=== PATIENT | female | born 1950 | race Caucasian/White ===

== ENCOUNTER 2016-07-05 17:11 | Emergency (ER) | payer BC | END 2016-07-05 18:01 | disposition left against medical advice (07) | LOC: ER 17:11 | DX: Z53.21 Procedure and treatment not carried out due to patient leaving prior to being seen by health care provider (principal) ==

== ENCOUNTER → 2016-07-05 | Outpatient (CLI) | payer BC | END | disposition home or self-care (01) | LOC: GMA 20:12 | PROVIDERS: ATTEND Nurse Practitioner Family | DX: R50.9 Fever, unspecified (principal) ==

== ENCOUNTER → 2016-08-21 | Outpatient (CLI) | payer BC ==
--- NOTE | 2016-08-21 17:16 | MAM ---
History: Well woman exam. Date of exam: 08/21/2016 Services provided: Bilateral full field digital screening mammography. CAD, the images were reviewed with R2 computer aided detection. FINDINGS: Glandular tissue is scattered glandular contour. Comparison with 2012 exam. No dominant mass, architectural distortion or clustered microcalcification. IMPRESSION: Benign exam Recommendation: Routine annual mammography BIRAD CATEGORY: 2 BENIGN Electronically signed by: Gayle Hummel MD 08/21/2016 5:15 PM CDT
== END | disposition home or self-care (01) ==
LOC: MAMMO 10:54
PROVIDERS: ATTEND Family Medicine
DX: Z12.31 Encounter for screening mammogram for malignant neoplasm of breast (principal)

== ENCOUNTER → 2016-09-26 | Outpatient (CLI) | payer BC | END | disposition home or self-care (01) | LOC: GMAL 10:25 | PROVIDERS: ATTEND Family Medicine | DX: N30.00 Acute cystitis without hematuria (principal) ==

== ENCOUNTER → 2016-12-12 | Outpatient (CLI) | payer BC | END | disposition home or self-care (01) | LOC: GMAL 10:56 | PROVIDERS: ATTEND Family Medicine | DX: E83.42 Hypomagnesemia (principal) ==

== ENCOUNTER → 2017-03-08 | Outpatient (CLI) | payer BC | END | disposition home or self-care (01) | LOC: GMAL 11:16 | PROVIDERS: ATTEND Family Medicine | DX: D51.3 Other dietary vitamin B12 deficiency anemia (principal); E03.9 Hypothyroidism, unspecified; E55.9 Vitamin D deficiency, unspecified ==

== ENCOUNTER → 2017-10-19 | Outpatient (CLI) | payer MEDICARE, OTHER | LOC: GMAL 11:23 | PROVIDERS: ATTEND Family Medicine | DX: N30.00 Acute cystitis without hematuria (principal) ==

== ENCOUNTER 2017-11-20 21:28 | Emergency (ER) | payer MEDICARE, OTHER ==
[2017-11-20] MEDS ORDERED: SODIUM CHLORIDE 0.9% 1000ML 1,000 ML IVS ONE (21:45)
[2017-11-20] MEDS ORDERED: ONDANSETRON ODT 8 MG TAB SL ONE (21:45)
[2017-11-20] MEDS ORDERED: ALUMINUM & MAGNESIUM HYDROXIDE 30 ML UD PO ONE (21:46)
[2017-11-20] MEDS ORDERED: PANTOPRAZOLE SODIUM IV 40 MG VIAL IV ONE (21:46)
--- NOTE | 2017-11-20 22:28 | RAD ---
EXAM: Abdomen Series CLINICAL INDICATION: Nausea, vomiting COMPARISON: 03/13/2010. FINDINGS: A single view of the chest reveals the heart size is normal. The pulmonary vessels are unremarkable. There is prominent soft tissue density in the right paratracheal region, underlying mass or lymphadenopathy cannot be excluded. This finding is not seen on previous chest x-ray from 03/13/2010. 2 views of the abdomen were obtained. Multiple surgical clips and casandra are seen in the upper abdomen. There is a nonspecific bowel gas pattern with no radiographic evidence of bowel obstruction. There are no dilated loops of small bowel. There is no evidence of pneumoperitoneum or pathologic calcifications. IMPRESSION: 1. No evidence of an acute intraabdominal process. 2. Incidentally noted prominent right paratracheal soft tissue density in the chest, raising concern for underlying mediastinal/hilar mass or lymphadenopathy. CT scan of the chest is recommended for further evaluation. Electronically signed by: Thom Springer MD 11/20/2017 10:26 PM CDT
--- NOTE | 2017-11-21 00:13 | CT ---
EXAMINATION: POSTCONTRAST ABDOMEN AND PELVIC CT EXAMINATION. REFERRAL DIAGNOSIS: Pain. COMPARISONS: None. PROCEDURE: Using low-dose helical technique, thin section axial images were performed through the abdomen and pelvis after the uncomplicated intravenous administration of nonionic iodinated contrast material. No oral contrast was administered. FINDINGS: Minimal vascular and organ enhancement suggests either intravenous contrast injection failure versus severely decreased cardiac output. Diffuse hepatic fatty infiltration. Hepatomegaly with the right hepatic lobe measuring 20 cm in greatest coronal dimension. Sequela of remote cholecystectomy. Fluid-filled distended urinary bladder. No convincing urinary system obstruction or pyelonephritis. The liver, spleen, pancreas, adrenal glands, kidneys, renal collecting systems, ureters and unenhanced urinary bladder are otherwise normal. The unenhanced nondistended stomach and duodenum cannot be evaluated. Numerous loops of unenhanced small bowel colon are grossly normal. No evidence of diverticulitis, appendicitis, chronic inflammatory bowel disease, mechanical small bowel obstruction or extraluminal bowel gas. No retroperitoneal hemorrhage or evidence of psoas muscle abscess. Severe atherosclerotic calcification in the abdominal aorta and iliac arteries without aneurysm. Greatest AP diameter of the infrarenal abdominal aorta measures 1.7 cm. No imaging follow-up recommended. 3.1 cystic structure in the left iliac crest possibly representing sequela of remote bone harvest site. Bones are normal for age. Lung bases are normal. IMPRESSION: 1. Diffuse hepatic fatty infiltration with hepatomegaly. 2. Fluid-filled distended urinary bladder. No urinary system obstruction or evidence of pyelonephritis. 3. No evidence of diverticulitis, appendicitis or inflammatory bowel disease. This exam was performed according to our departmental dose-optimization program, which includes automated exposure control, adjustment of the mA and/or kV according to patient size and/or use of iterative reconstruction technique. Electronically signed by: John Meneses MD 11/21/2017 12:12 AM CDT
--- NOTE | 2017-11-21 00:23 | CT ---
EXAMINATION: Postcontrast chest CT examination. REFERRAL DIAGNOSIS: Right paratracheal mass lesion. COMPARISONS: Today's abdomen and pelvic CT examination. PROCEDURE: Using low-dose helical technique, thin section axial images were performed through the chest after the uncomplicated intravenous administration of nonionic iodinated contrast material. No oral contrast was administered. Very poor arterial enhancement indicative of small injection contrast dose versus for delayed scan time after contrast injection versus poor cardiac output. This greatly degrades fine evaluation examination. CHEST CT FINDINGS: 3.1 cm right upper hilar mass lesion suspicious for malignancy. This lesion extends into the pretracheal mediastinum with mediastinal measurement equaling 3 cm x 3.4 cm. Suspect this represents small cell carcinoma. The lungs are otherwise clear given motion artifact. No pleural effusions. Cardiac size and contour appears normal. Partially visualized three-vessel coronary artery calcification. Fine detail obscured by cardiac motion artifact. No pericardial effusion. Atherosclerotic calcification of thoracic aorta without aneurysm. Greatest diameter of the ascending thoracic aorta measures approximately 2.6 cm. No evidence of metastatic disease to the bones. IMPRESSION: 1. Large right paratracheal mass extending into the right mediastinum as described above suspicious for small cell carcinoma. No evidence of metastatic disease to the left mediastinum or left lung. 2. No pleural effusions. 3. Partially visualized severe coronary artery calcification This exam was performed according to our departmental dose-optimization program, which includes automated exposure control, adjustment of the mA and/or kV according to patient size and/or use of iterative reconstruction technique. Electronically signed by: John Meneses MD 11/21/2017 12:21 AM CDT
--- NOTE | 2017-11-21 01:12 | ED.PDOC ---
History of Present Illness - General Chief Complaint: GI Problem Stated Complaint: vomiting x 3 days Time Seen by Provider: 11/20/17 21:35 Source: patient Exam Limitations: no limitations - History of Present Illness Initial Comments: the patient is a 67-year-old female presenting to the emergency room secondary to symptoms of nausea and vomiting for the last 3 days. She has been under a lot of stress recently with her having cancer. The nausea and vomiting have been progressive as far as rapidity of onset after taking any oral intake. Initially it started with vomiting only after food now she is having some vomiting with some liquids. No history of any cancer in this patient. She did have a distant gastric bypass. She does have some mild epigastric discomfort from the throwing up. No blood in the vomitus. She is still having bowel movements. No rebound or peritoneal signs. No shortness of breath. No chest pain. Severity: moderate Improving Factors: nothing Worsening Factors: nothing Associated Symptoms: malaise, nausea/vomiting, weakness Allergies/Adverse Reactions: Allergies NO KNOWN ALLERGY Allergy (Verified 05/29/12 15:29) Home Medications: Ambulatory Orders Desvenlafaxine Succinate [Pristiq] 50 mg PO DAILY 05/27/12 Esomeprazole [Nexium] 40 mg PO DAILY 05/27/12 Estradiol Patch 0.1MG [Climara] 0.1 mg TD DAILY 05/27/12 HYDROcodone 5MG/APAP 325MG [[place] 5/325] 0 ea PO .Q4H 05/27/12 Iron [Mykidz Iron 10] 15 mg PO DAILY 05/27/12 Levothyroxine Sodium [Synthroid] 0.075 mg PO DAILY 05/27/12 Simvastatin 20 mg PO DAILY 05/27/12 Ondansetron [Zofran Odt] 4 mg PO Q4H PRN #10 tab 11/21/17 Promethazine HCl 25 mg PO Q6H PRN #10 tab 11/21/17 Review of Systems - Review of Systems Constitutional: States: malaise EENTM: States: no symptoms reported Respiratory: States: no symptoms reported Cardiology: States: no symptoms reported Gastrointestinal/Abdominal: States: see HPI Genitourinary: States: no symptoms reported Musculoskeletal: States: no symptoms reported Skin: States: no symptoms reported Neurological: States: no symptoms reported Endocrine: States: no symptoms reported All other Systems: No Change from Baseline Past Medical History (General) - Patient Medical History Hx Stroke: Yes Hx Congestive Heart Failure: No Hx Thyroid Disease: Yes Hx Diabetes: No Hx Gastroesophageal Reflux: Yes Hx MRSA: No Surgical History: appendectomy, cholecystectomy, gastric bypass - Vaccination History Hx Tetanus, Diphtheria Vaccination: No Hx Influenza Vaccination: Yes Hx Pneumococcal Vaccination: No - Social History Hx Tobacco Use: Yes Hx Chewing Tobacco Use: No Hx Alcohol Use: No Hx Depression: Yes Feels Threatened In Home Enviroment: No Feels Threatened In a Relationship: No Hx Physical Abuse: No Hx Emotional Abuse: No Hx Suspected Abuse: No Family Medical History - Family History Father Family History: Unknown Physical Exam - Physical Exam General Appearance: Alert, Anxious Eye Exam: bilateral normal Ears, Nose, Throat: hearing grossly normal, normal ENT inspection, normal pharynx Neck: full range of motion, supple Respiratory: lungs clear, normal breath sounds, no respiratory distress, no accessory muscle use Cardiovascular/Chest: normal peripheral pulses, regular rate, rhythm, no edema Peripheral Pulses: radial,right: 2+, radial,left: 2+, dorsalis pedis,right: 2+, dorsalis pedis,left: 2+ Gastrointestinal/Abdominal: soft, other - mild epigastric discomfort palpation. No rebound or peritoneal signs. No palpable mass. 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, alert, oriented x 3, other - the patient is obviously depressed Skin Exam: normal color Comments: Vital Signs 11/20/17 11/20/17 11/20/17 21:35 22:40 23:40 Temperature 98.2 F 97.6 F 98.1 F Pulse Rate [ 89 84 91 H Right Arm] Respiratory 18 18 18 Rate Blood Pressure 162/76 149/76 163/97 [Right Arm] O2 Sat by Pulse 100 100 99 Oximetry 11/21/17 00:33 Temperature Pulse Rate [ 78 Right Arm] Respiratory 20 Rate Blood Pressure 154/70 [Right Arm] O2 Sat by Pulse 98 Oximetry Progress - Progress Progress: 11/21/17 01:14 the patient is a 67-year-old female presenting originally with nausea and vomiting for the last [address] scan of abdomen and pelvis failed to show any source for this though she does have a history of a gastric bypass. She does need to remain on her stomach medications. A likely source is the mediastinal mass noted on the CT scan. According to radiology it is suspicious for small cell carcinoma. this is not a definitive diagnosis. The patient is unwilling to stay for further care or be transferred for higher level of care tonight. Due to her recent ordeal with her and his cancer she is well acquainted with the oncologist in [place] and has agreed to get set up with them in the very near future for more definitive evaluation and treatment. given her current condition this is not unreasonable. She will be written for Zofran and Phenergan for as needed use. She needs to try and keep herself well hydrated. ER warnings were given. - Results/Orders Results/Orders: chest x-ray shows right perihilar abnormality. Abdominal x-ray shows no evidence of any perforation or obstruction. CT scan of abdomen and pelvis shows mild hepatomegaly and an old cystic structure at the left iliac crest likely due to bone marrow biopsy. CT scan of the chest shows a 3 cm right upper hilar lesion suspicious for small cell carcinoma extending into the pretracheal mediastinum at about the level of the bifurcation of the trachea at 3 cm x 3.5 cm. Laboratory Tests 11/20/17 11/20/17 11/20/17 22:12 22:12 22:12 WBC 5.6 RBC 3.91 L Hgb 13.3 Hct 38.9 MCV 99.5 H MCH 34.0 H MCHC 34.1 RDW 13.3 Plt Count 209 MPV 7.6 Absolute Neuts (auto) 3.90 Absolute Lymphs (auto) 1.20 Absolute Monos (auto) 0.40 Absolute Eos (auto) 0.10 Absolute Basos (auto) 0.00 Neutrophils % 69.0 Lymphocytes % 22.1 Monocytes % 6.8 Eosinophils % 1.4 Basophils % 0.7 PT 9.9 INR 0.99 PTT (SP) 25.2 Sodium 138 Potassium 3.9 Chloride 101 Carbon Dioxide 31 Anion Gap 9.9 L BUN < 5 L Creatinine 0.48 L BUN/Creatinine Ratio 10.4 Random Glucose 101 Serum Osmolality 273.1 L Lactic Acid Calcium 8.3 L Magnesium 1.7 L Total Bilirubin 0.5 AST 52 H ALT 26 Alkaline Phosphatase 150 H Creatine Kinase 68 CK-MB (CK-2) 3.2 CK-MB (CK-2) % Not Reportable Troponin I < 0.02 B-Natriuretic Peptide 40.8 Serum Total Protein 6.3 L Albumin 2.8 L Globulin 3.5 Albumin/Globulin Ratio 0.8 L Amylase 49 Lipase < 14 L TSH 4.71 Urine Color Urine Appearance Urine pH Ur Specific [place] Urine Protein Urine Glucose (UA) Urine Ketones Urine Blood Urine Nitrite Urine Bilirubin Urine Urobilinogen Ur Leukocyte Esterase Urine RBC Urine WBC Ur Epithelial Cells Urine Bacteria 11/20/17 11/20/17 22:12 22:12 WBC RBC Hgb Hct MCV MCH MCHC RDW Plt Count MPV Absolute Neuts (auto) Absolute Lymphs (auto) Absolute Monos (auto) Absolute Eos (auto) Absolute Basos (auto) Neutrophils % Lymphocytes % Monocytes % Eosinophils % Basophils % PT INR PTT (SP) Sodium Potassium Chloride Carbon Dioxide Anion Gap BUN Creatinine BUN/Creatinine Ratio Random Glucose Serum Osmolality Lactic Acid 1.0 Calcium Magnesium Total Bilirubin AST ALT Alkaline Phosphatase Creatine Kinase CK-MB (CK-2) CK-MB (CK-2) % Troponin I B-Natriuretic Peptide Serum Total Protein Albumin Globulin Albumin/Globulin Ratio Amylase Lipase TSH Urine Color Yellow Urine Appearance Clear Urine pH 7.0 Ur Specific [place] 1.015 Urine Protein Negative Urine Glucose (UA) Negative Urine Ketones Negative Urine Blood Negative Urine Nitrite Negative Urine Bilirubin Negative Urine Urobilinogen 0.2 Ur Leukocyte Esterase Negative Urine RBC 0-1 Urine WBC 0 Ur Epithelial Cells 3-5 Urine Bacteria 1+ Departure - Departure Clinical Impression: Mass of mediastinum Vomiting Qualifiers: Vomiting type: unspecified Vomiting Intractability: non-intractable Nausea presence: with nausea Qualified Code(s): R11.2 - Nausea with vomiting, unspecified Disposition: Discharge to Home or Self Care Condition: Serious Departure Forms: ED Discharge - Pt. Copy, Patient Portal Self Enrollment Instructions: Nausea and Vomiting, Adult Diet: full liquid diet Activity: increase activity as tolerated Referrals: Abraham Ortiz III, MD [Primary Care Provider] - 1-2 Weeks Prescriptions: Ondansetron [Zofran Odt] 4 mg PO Q4H PRN #10 tab PRN Reason: Vomiting Promethazine HCl 25 mg PO Q6H PRN #10 tab PRN Reason: Vomiting Home Medications: Ambulatory Orders Desvenlafaxine Succinate [Pristiq] 50 mg PO DAILY 05/27/12 Esomeprazole [Nexium] 40 mg PO DAILY 05/27/12 Estradiol Patch 0.1MG [Climara] 0.1 mg TD DAILY 05/27/12 HYDROcodone 5MG/APAP 325MG [[place] 5/325] 0 ea PO .Q4H 05/27/12 Iron [Mykidz Iron 10] 15 mg PO DAILY 05/27/12 Levothyroxine Sodium [Synthroid] 0.075 mg PO DAILY 05/27/12 Simvastatin 20 mg PO DAILY 05/27/12 Ondansetron [Zofran Odt] 4 mg PO Q4H PRN #10 tab 11/21/17 Promethazine HCl 25 mg PO Q6H PRN #10 tab 11/21/17 Additional Instructions: the patient is a 67-year-old female presenting originally with nausea and vomiting for the last [address] scan of abdomen and pelvis failed to show any source for this though she does have a history of a gastric bypass. She does need to remain on her stomach medications. A likely source is the mediastinal mass noted on the CT scan. According to radiology it is suspicious for small cell carcinoma. this is not a definitive diagnosis. The patient is unwilling to stay for further care or be transferred for higher level of care tonight. Due to her recent ordeal with her and his cancer she is well acquainted with the oncologist in [place] and has agreed to get set up with them in the very near future for more definitive evaluation and treatment. given her current condition this is not unreasonable. She will be written for Zofran and Phenergan for as needed use. She needs to try and keep herself well hydrated. ER warnings were given.
[2017-11-21 01:52] VITALS: BP 142/76; TEMP 97.4; O2SAT 97
== END 2017-11-21 00:50 | disposition home or self-care (01) ==
LOC: ER 21:28
DX: R11.2 Nausea with vomiting, unspecified (principal); R22.2 Localized swelling, mass and lump, trunk; E07.9 Disorder of thyroid, unspecified; K21.9 Gastro-esophageal reflux disease without esophagitis; R16.0 Hepatomegaly, not elsewhere classified; Z86.73 Personal history of transient ischemic attack (TIA), and cerebral infarction without residual deficits; Z98.84 Bariatric surgery status; Z87.891 Personal history of nicotine dependence; Z79.899 Other long term (current) drug therapy
CPT/HCPCS: 71260; 74019; 74177; 80053; 81001; 82150; 82550; 82553; 83605; 83690; 83735; 83880; 84443; 84484; 85025; 85610; 85730; J7030

== ENCOUNTER → 2017-12-28 | Outpatient (CLI) | payer MEDICARE, OTHER | LOC: GMAL 10:59 | PROVIDERS: ATTEND Family Medicine | DX: N30.00 Acute cystitis without hematuria (principal) ==

== ENCOUNTER 2018-03-04 16:27 | Emergency (ER) | payer MEDICARE, OTHER ==
[2018-03-04] MEDS ORDERED: SODIUM CHLORIDE 0.9% 1000ML 1,000 ML IVS ONE (16:49)
[2018-03-04] MEDS ORDERED: ALUM & MAG HYDROX-SIMETHICONE 30 ML, LIDOCAINE VISCOUS 2% 15 ML PO ONE ×2 (16:49)
[2018-03-04] MEDS ORDERED: PROCHLORPERAZINE INJ 10 MG/2 ML VIAL IV ONE (16:49)
[2018-03-04] MEDS ORDERED: LIDOCAINE HCL 2% (MOUTH-THROAT) 15 ML UD ONE (17:10)
[2018-03-04] MEDS ORDERED: ALUM & MAG HYDROX-SIMETHICONE 30 ML UD ONE (17:11)
--- NOTE | 2018-03-04 17:43 | RAD ---
EXAM DESCRIPTION: Abdomen Series CLINICAL HISTORY: lung cancer, vomiting COMPARISON: None Available. TECHNIQUE: PA chest with supine and upright views of the abdomen] FINDINGS: A PICC line is seen in place on the patient's right with the distal tip in the superior vena cava. An anterior cervical fusion plate is observed in the cervical spine. Previously observed right paratracheal adenopathy is less pronounced. The heart is within range of normal. Surgical clips are seen in the right upper quadrant. Chain sutures seen in the left upper quadrant. The bowel gas pattern is unremarkable. No worrisome calcifications are seen. IMPRESSION: The abdomen is unremarkable. The chest portion demonstrates a reduction the size of the right paratracheal mass. Electronically signed by: Abraham Sanches MD 03/04/2018 5:42 PM CDT
[2018-03-04] MEDS ORDERED: FLUCONAZOLE 100 MG TAB PO ONE (18:25)
[2018-03-04] MEDS ORDERED: SUCRALFATE 1 GM/10 ML 1 GM UD PO ONE (18:48)
[2018-03-04] MEDS ORDERED: AMOXICILLIN & POT CLAVULANATE 875 MG TAB PO ONE (18:48)
[2018-03-04] MEDS ORDERED: valACYclovir 500 MG TAB PO ONE (18:50)
--- NOTE | 2018-03-04 19:27 | ED.PDOC ---
History of Present Illness - General Chief Complaint: General Time Seen by Provider: 03/04/18 16:35 Source: patient Exam Limitations: no limitations - History of Present Illness Initial Comments: the patient is a 67-year-old female presenting to the emergency room secondary to 5 days of some mild nausea and vomiting. No real diarrhea. The patient has had blisters in her mouth that are now healing. She is undergoing chemotherapy and her last chemotherapy round was 2 weeks ago. She is uncertain what medications are being used for chemotherapy. She has small cell lung cancer. She is not undergoing radiation. She actually looks fairly well hydrated. No blood in the vomitus. No real abdominal pain. Evidence supports that her chemotherapy is actually working. No fevers. No shortness of breath. No urinary symptoms. She did have similar symptoms 3 or 4 months ago. the patient had not been taking her Phenergan because it made her too drowsy. Timing/Duration: unsure Severity: moderate Improving Factors: nothing Worsening Factors: nothing Associated Symptoms: malaise, nausea/vomiting Allergies/Adverse Reactions: Allergies NO KNOWN ALLERGY Allergy (Verified 05/29/12 15:29) Home Medications: Ambulatory Orders Desvenlafaxine Succinate [Pristiq] 50 mg PO DAILY 05/27/12 Esomeprazole [Nexium] 40 mg PO DAILY 05/27/12 Estradiol Patch 0.1MG [Climara] 0.1 mg TD DAILY 05/27/12 HYDROcodone 5MG/APAP 325MG [Orange 5/325] 0 ea PO .Q4H 05/27/12 Iron [Mykidz Iron 10] 15 mg PO DAILY 05/27/12 Levothyroxine Sodium [Synthroid] 0.075 mg PO DAILY 05/27/12 Simvastatin 20 mg PO DAILY 05/27/12 Ondansetron [Zofran Odt] 4 mg PO Q4H PRN #10 tab 11/21/17 Promethazine HCl 25 mg PO Q6H PRN #10 tab 11/21/17 Amoxicillin & Pot Clavulanate [Augmentin Tab] 875 mg PO BID #14 tab 03/04/18 Prochlorperazine Tab [Compazine Tab] 10 mg PO Q8HR PRN #20 tab 03/04/18 Valacyclovir HCl [Valtrex] 500 mg PO BID #10 tab 03/04/18 Review of Systems - Review of Systems Constitutional: States: malaise EENTM: States: no symptoms reported Respiratory: States: no symptoms reported Cardiology: States: no symptoms reported Gastrointestinal/Abdominal: States: nausea, vomiting Genitourinary: States: no symptoms reported Musculoskeletal: States: no symptoms reported Skin: States: no symptoms reported Neurological: States: no symptoms reported Endocrine: States: no symptoms reported All other Systems: No Change from Baseline Past Medical History (General) - Patient Medical History Hx Stroke: Yes Hx Congestive Heart Failure: No Hx Thyroid Disease: Yes Hx Diabetes: No Hx Gastroesophageal Reflux: Yes Hx Cancer: Yes Hx MRSA: No Surgical History: appendectomy, cholecystectomy - Vaccination History Hx Tetanus, Diphtheria Vaccination: Yes Hx Influenza Vaccination: Yes Hx Pneumococcal Vaccination: Yes Immunizations Up to Date: No - Social History Hx Tobacco Use: Yes Hx Chewing Tobacco Use: No Hx Alcohol Use: No Hx Substance Use: No Hx Substance Use Treatment: No Hx Depression: No Feels Threatened In Home Enviroment: No Feels Threatened In a Relationship: No Hx Physical Abuse: No Hx Emotional Abuse: No Hx Suspected Abuse: No - Female History Patient is a Female of Child Bearing Age (10 -59 yrs old): No Patient : No Family Medical History - Family History Father Family History: Unknown Physical Exam - Physical Exam General Appearance: Alert, No apparent distress Eye Exam: bilateral normal Ears, Nose, Throat: hearing grossly normal, other - healing blisters on the roof of her mouth. No lesions in her nares. Neck: full range of motion, supple Respiratory: lungs clear, normal breath sounds, no respiratory distress, no accessory muscle use Cardiovascular/Chest: normal peripheral pulses, regular rate, rhythm, no edema Peripheral Pulses: radial,right: 2+, radial,left: 2+, dorsalis pedis,right: 2+, dorsalis pedis,left: 2+ Gastrointestinal/Abdominal: non tender, soft Rectal Exam: deferred Back Exam: normal inspection, no CVA tenderness, no vertebral tenderness Extremity: non-tender, normal inspection, no pedal edema, normal capillary refill, other - PICC line is in the right upper extremity Neurologic: alert, normal mood/affect, oriented x 3 Skin Exam: normal color Comments: Vital Signs - 24 hr 03/04/18 16:28 Temperature 98.2 F Pulse Rate [ 100 H Apical] Respiratory 18 Rate Blood Pressure 145/112 [Left Arm] O2 Sat by Pulse 99 Oximetry Progress - Progress Progress: 03/04/18 19:28 the patient's a 67-year-old female presenting to the emergency room after 5 days of intermittent nausea and vomiting. The patient does have some healing blisters to the roof of her mouth. A HSV culture is being performed. She is going to be empirically placed on Valtrex for the next 5 days in case this turns up positive. She was given 1 dose of oral Diflucan as well. It is possible she may have these lesions extending down her esophagus. I'm uncertain if these can be a side effect of her chemotherapy. No source of other infection was found on this patient. Blood cultures have been performed. The patient is going to be placed on broad-spectrum antibiotic Augmentin twice a day for the next 7 days. Obviously if the patient becomes symptomatic otherwise, additional workup may be warranted. X-ray of the chest does show improvement of the hilar mass. The patient is doing quite well after a dose of Compazine and a liter of IV fluids and is desirous of going home. At this point , I do not see much that A inpatient hospital stay could provide her otherwise. She'll be sent home with Augmentin, Valtrex, and Compazine. ER warnings were given. She does need to contact her oncology group tomorrow to let them know what is happening. White blood cell count today was 11,900 with 7% bands. Platelets are low at 80. I do not have recent blood work for comparison. - Results/Orders Results/Orders: 03/04/18 18:25 HERPES CULTURE RAPID Stat 03/04/18 18:37 BLOOD CULTURE Stat 03/04/18 18:56 HERPES CULTURE RAPID Routine Laboratory Results - last 24 hr 03/04/18 03/04/18 03/04/18 16:56 16:56 16:56 WBC 11.0 H RBC 2.69 L Hgb 9.1 L Hct 27.6 L MCV 102.8 H MCH 33.8 H MCHC 33.1 RDW 15.2 H Plt Count 80 L MPV 8.4 Absolute Neuts (auto) Not Reportable Absolute Lymphs (auto) Not Reportable Absolute Monos (auto) Not Reportable Absolute Eos (auto) Not Reportable Neutrophils % Not Reportable Neutrophils % (Manual) 71.0 Lymphocytes % Not Reportable Lymphocytes % (Manual) 18.0 Monocytes % Not Reportable Monocytes % (Manual) 4.0 Eosinophils % Not Reportable Basophils % Not Reportable Band Neutrophils 7.0 H Hypochromia 2+ Platelet Estimate Decreased Anisocytosis 1+ PT INR Sodium 137 Potassium 3.9 Chloride 101 Carbon Dioxide 28 Anion Gap 11.9 L BUN 7 Creatinine 0.48 L BUN/Creatinine Ratio 14.6 Random Glucose 91 Serum Osmolality 271.4 L Lactic Acid 1.9 Calcium 8.3 L Magnesium 1.7 L Total Bilirubin 0.3 AST 20 ALT 15 Alkaline Phosphatase 136 H Creatine Kinase 18 L CK-MB (CK-2) 10.6 H* CK-MB (CK-2) % Not Reportable Troponin I 0.03 Serum Total Protein 5.5 L Albumin 2.7 L Globulin 2.8 Albumin/Globulin Ratio 1.0 L Amylase 33 Lipase 19 L Urine Color Urine Appearance Urine pH Ur Specific [place] Urine Protein Urine Glucose (UA) Urine Ketones Urine Blood Urine Nitrite Urine Bilirubin Urine Urobilinogen Ur Leukocyte Esterase Urine RBC Urine WBC Ur Epithelial Cells Amorphous Sediment Urine Bacteria 03/04/18 03/04/18 17:13 18:02 WBC RBC Hgb Hct MCV MCH MCHC RDW Plt Count MPV Absolute Neuts (auto) Absolute Lymphs (auto) Absolute Monos (auto) Absolute Eos (auto) Neutrophils % Neutrophils % (Manual) Lymphocytes % Lymphocytes % (Manual) Monocytes % Monocytes % (Manual) Eosinophils % Basophils % Band Neutrophils Hypochromia Platelet Estimate Anisocytosis PT 11.9 H INR 1.19 H Sodium Potassium Chloride Carbon Dioxide Anion Gap BUN Creatinine BUN/Creatinine Ratio Random Glucose Serum Osmolality Lactic Acid Calcium Magnesium Total Bilirubin AST ALT Alkaline Phosphatase Creatine Kinase CK-MB (CK-2) CK-MB (CK-2) % Troponin I Serum Total Protein Albumin Globulin Albumin/Globulin Ratio Amylase Lipase Urine Color Yellow Urine Appearance Sl cloudy Urine pH 7.0 Ur Specific [place] 1.020 Urine Protein Negative Urine Glucose (UA) Negative Urine Ketones Negative Urine Blood Negative Urine Nitrite Negative Urine Bilirubin Negative Urine Urobilinogen 1.0 Ur Leukocyte Esterase Negative Urine RBC 0-1 Urine WBC Not Reportable Ur Epithelial Cells 3-5 Amorphous Sediment 2+ Urine Bacteria 0 acute abdominal series shows no acute pathology. PICC line is present. No evidence of pneumonia. No obstruction. No free air. - EKG/XRAY/CT CT Ordered: No CT Interpretation Call Back: No Departure - Departure Clinical Impression: Mild dehydration, Pharyngeal lesion Nausea and vomiting Qualifiers: Vomiting type: unspecified Vomiting Intractability: non-intractable Qualified Code(s): R11.2 - Nausea with vomiting, unspecified Disposition: Discharge to Home or Self Care Condition: Fair Departure Forms: ED Discharge - Pt. Copy, Patient Portal Self Enrollment Diet: bland diet Activity: increase activity as tolerated Referrals: Abraham Ortiz III, MD [Primary Care Provider] - 1-5 Days Prescriptions: Prochlorperazine Tab [Compazine Tab] 10 mg PO Q8HR PRN #20 tab PRN Reason: Nausea/Vomiting Amoxicillin & Pot Clavulanate [Augmentin Tab] 875 mg PO BID #14 tab Valacyclovir HCl [Valtrex] 500 mg PO BID #10 tab Home Medications: Ambulatory Orders Desvenlafaxine Succinate [Pristiq] 50 mg PO DAILY 05/27/12 Esomeprazole [Nexium] 40 mg PO DAILY 05/27/12 Estradiol Patch 0.1MG [Climara] 0.1 mg TD DAILY 05/27/12 HYDROcodone 5MG/APAP 325MG [Orange 5/325] 0 ea PO .Q4H 05/27/12 Iron [Mykidz Iron 10] 15 mg PO DAILY 05/27/12 Levothyroxine Sodium [Synthroid] 0.075 mg PO DAILY 05/27/12 Simvastatin 20 mg PO DAILY 05/27/12 Ondansetron [Zofran Odt] 4 mg PO Q4H PRN #10 tab 11/21/17 Promethazine HCl 25 mg PO Q6H PRN #10 tab 11/21/17 Amoxicillin & Pot Clavulanate [Augmentin Tab] 875 mg PO BID #14 tab 03/04/18 Prochlorperazine Tab [Compazine Tab] 10 mg PO Q8HR PRN #20 tab 03/04/18 Valacyclovir HCl [Valtrex] 500 mg PO BID #10 tab 03/04/18 Additional Instructions: the patient's a 67-year-old female presenting to the emergency room after 5 days of intermittent nausea and vomiting. The patient does have some healing blisters to the roof of her mouth. A HSV culture is being performed. She is going to be empirically placed on Valtrex for the next 5 days in case this turns up positive. She was given 1 dose of oral Diflucan as well. It is possible she may have these lesions extending down her esophagus. I'm uncertain if these can be a side effect of her chemotherapy. No source of other infection was found on this patient. Blood cultures have been performed. The patient is going to be placed on broad-spectrum antibiotic Augmentin twice a day for the next 7 days. Obviously if the patient becomes symptomatic otherwise, additional workup may be warranted. X-ray of the chest does show improvement of the hilar mass. The patient is doing quite well after a dose of Compazine and a liter of IV fluids and is desirous of going home. At this point , I do not see much that A inpatient hospital stay could provide her otherwise. She'll be sent home with Augmentin, Valtrex, and Compazine. ER warnings were given. She does need to contact her oncology group tomorrow to let them know what is happening. White blood cell count today was 11,900 with 7% bands. Platelets are low at 80. I do not have recent blood work for comparison.
[2018-03-04 19:55] VITALS: BP 114/52; TEMP 98.3; O2SAT 100
== END 2018-03-04 19:56 | disposition home or self-care (01) ==
LOC: ER 16:27
DX: R11.2 Nausea with vomiting, unspecified (principal); E86.0 Dehydration; J39.2 Other diseases of pharynx; C34.90 Malignant neoplasm of unspecified part of unspecified bronchus or lung; K21.9 Gastro-esophageal reflux disease without esophagitis; E07.9 Disorder of thyroid, unspecified; Z86.73 Personal history of transient ischemic attack (TIA), and cerebral infarction without residual deficits; Z79.899 Other long term (current) drug therapy; Z87.891 Personal history of nicotine dependence; Z92.21 Personal history of antineoplastic chemotherapy
CPT/HCPCS: 36415; 74019; 80053; 81001; 82150; 82550; 82553; 83605; 83690; 83735; 84484; 85025; 85610; 87040; 87254; J0780; J7030

== ENCOUNTER → 2018-03-27 | Outpatient (CLI) | payer MEDICARE, OTHER ==
[2018-03-27] MEDS: SODIUM CHLORIDE 0.9% (FLUSH) 10 ML SYG IV PRN ×2 (08:36→09:06)
[2018-03-27 10:26] VITALS: BP 133/78; TEMP 97.6; O2SAT 99
== END | disposition home or self-care (01) ==
LOC: TXRM 03-26 17:02
PROVIDERS: ATTEND Internal Medicine Hematology & Oncology
DX: C34.11 Malignant neoplasm of upper lobe, right bronchus or lung (principal); D69.6 Thrombocytopenia, unspecified
CPT/HCPCS: 36415; 86900; 86901; G0463; P9035

== ENCOUNTER 2018-08-02 05:38 | Day surgery (SDC) | payer MEDICARE, OTHER ==
[2018-08-02] MEDS ORDERED: LACTATED RINGERS 1,000 ML ONE (05:54)
[2018-08-02] MEDS ORDERED: PROPOFOL 200 MG/20 ML VIAL IV ONE (07:00)
[2018-08-02] MEDS: LACTATED RINGERS 1,000 ML BAG IV ONE (09:25)
--- NOTE | 2018-08-02 11:22 | OP ---
DATE OF PROCEDURE: 08/02/18 PREPROCEDURE DIAGNOSIS: 1. Nausea/vomiting/abdominal pain. POSTPROCEDURE DIAGNOSIS: 1. Status post Valery-en-Y gastric bypass. PROCEDURE: 1. Esophagogastroduodenoscopy. SURGEON: Elvin Perez MD COMPLICATIONS: No immediate complications. SEDATION: The patient was sedated via IV propofol by the Anesthesia Department. CONSENT: Prior to the procedure, risks, benefits and alternatives to the therapy were discussed with the patient. The risks included bleeding, infection, perforation and . The patient agreed to the procedure and signed a consent. PREPROCEDURE ANESTHESIA ASSESSMENT: An examination revealed no contraindication to sedation. Airway examination demonstrated a Mallampati class type 2, ASA grade assessment type 2. Throughout the procedure, the patient's blood pressure and additional vitals were closely monitored. PROCEDURE: The patient was placed in the left lateral decubitus position. Bite block was placed in the mouth between the teeth. The Olympus endoscope was introduced through the oropharynx, esophagus, stomach and the proximal aspect of the jejunum. The scope was retracted and the mucosa visualized. The entirety of the exam was performed under direct visualization. Retroflexion was performed in the stomach pouch. The patient tolerated the procedure well. FINDINGS: 1. The esophagus appeared entirely normal. 2. An intact gastric pouch was visualized and anatomy compatible with Valery-en-Y gastric bypass was seen. The gastrojejunal anastomosis appeared intact. No evident ulcers at the level of the anastomosis were seen. The afferent limb was explored and examined under direct vision. The proximal jejunum was entirely normal. No evident strictures or ulcerations were seen throughout. IMPRESSION: 1. Status post Valery-en-Y gastric bypass with healthy appearing gastrojejunal anastomosis. No evidence of endoscopic abnormalities. RECOMMENDATION: 1. Return the patient home. 2. Resume previous diet favoring small portions meals and frequent eating. 3. Additional testing may be required and clinical correlation. This may include cross-sectional imaging of the abdomen. We will discuss during her next followup visit. 4. Return to my office in the next 1 to 2 weeks. 5. The findings were discussed with the patient and family members. #[id number] [facility]
[2018-08-02 11:42] VITALS: BP 118/60; TEMP 97.4; O2SAT 97
== END 2018-08-02 11:30 ==
LOC: AMB 05:38
PROVIDERS: ATTEND Internal Medicine Gastroenterology
DX: R11.2 Nausea with vomiting, unspecified (principal); R10.9 Unspecified abdominal pain; F17.210 Nicotine dependence, cigarettes, uncomplicated; Z98.84 Bariatric surgery status; Z86.010 Personal history of colon polyps; Z87.19 Personal history of other diseases of the digestive system; Z79.899 Other long term (current) drug therapy
CPT/HCPCS: 00731; 43235; J3490; J7120

== ENCOUNTER 2018-10-05 18:14 | Emergency (ER) | payer MEDICARE, OTHER ==
--- NOTE | 2018-10-05 18:33 | ED.PDOC ---
History of Present Illness - General Chief Complaint: General Stated Complaint: generalized intractable pain, cancer Time Seen by Provider: 10/05/18 18:18 Source: patient Exam Limitations: no limitations - History of Present Illness Initial Comments: THIS PATIENT COMES BY AMBULANCE. 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 SHE IS STILL RECEIVING BRAIN RADIOTHERAPY AND UNDER THE CARE OF DR. GARIBAY IN [place]. SHE FREQUENTLY HAS SHOULDER PAIN BUT NOW THE PAIN VOICES PAIN EVERYWHERE, REASON WHY THE EMS WAS SUMMONED. EN ROUTE SHE WAS GIVEN 4 MG OF MORPHINE AND THIS DROPPED HER BP TO 76 SYSTOLIC. SHE IS ON PALIATIVE CARE BUT IS A FULL CODE. Timing/Duration: 4-6 hours Severity: severe Worsening Factors: nothing Associated Symptoms: denies symptoms Allergies/Adverse Reactions: Allergies NO KNOWN ALLERGY Allergy (Verified 05/29/12 15:29) Home Medications: Ambulatory Orders Desvenlafaxine Succinate [Pristiq] 50 mg PO DAILY 05/27/12 Esomeprazole [Nexium] 40 mg PO DAILY 05/27/12 Estradiol Patch 0.1MG [Climara] 0.1 mg TD DAILY 05/27/12 HYDROcodone 5MG/APAP 325MG [[place] 5/325] 0 ea PO .Q4H 05/27/12 Iron [Mykidz Iron 10] 15 mg PO DAILY 05/27/12 Levothyroxine Sodium [Synthroid] 0.075 mg PO DAILY 05/27/12 Simvastatin 20 mg PO DAILY 05/27/12 Ondansetron [Zofran Odt] 4 mg PO Q4H PRN #10 tab 11/21/17 Promethazine HCl 25 mg PO Q6H PRN #10 tab 11/21/17 Amoxicillin & Pot Clavulanate [Augmentin Tab] 875 mg PO BID #14 tab 03/04/18 Prochlorperazine Tab [Compazine Tab] 10 mg PO Q8HR PRN #20 tab 03/04/18 Valacyclovir HCl [Valtrex] 500 mg PO BID #10 tab 03/04/18 Review of Systems - Review of Systems Constitutional: States: no symptoms reported EENTM: States: no symptoms reported Respiratory: States: no symptoms reported Cardiology: States: no symptoms reported Gastrointestinal/Abdominal: States: no symptoms reported Genitourinary: States: no symptoms reported Musculoskeletal: States: joint pain, joint swelling, muscle pain Skin: States: no symptoms reported Neurological: States: no symptoms reported Endocrine: States: no symptoms reported Hematologic/Lymphatic: States: no symptoms reported Past Medical History (General) - Patient Medical History Hx Stroke: Yes Hx Congestive Heart Failure: No Hx Thyroid Disease: Yes Hx Diabetes: No Hx Gastroesophageal Reflux: Yes Hx Cancer: Yes - CANCER OF THE LUNG WITH BRAIN AND LIVER LIVER METS Hx MRSA: No - Vaccination History Hx Tetanus, Diphtheria Vaccination: Yes Hx Influenza Vaccination: Yes Hx Pneumococcal Vaccination: Yes - Social History Hx Tobacco Use: Yes Hx Chewing Tobacco Use: No Hx Alcohol Use: No Hx Substance Use: No Hx Substance Use Treatment: No Hx Depression: No Hx Physical Abuse: No Hx Emotional Abuse: No Hx Suspected Abuse: No - Female History Patient : No Family Medical History - Family History Father Family History: Unknown Physical Exam - Physical Exam General Appearance: Alert, Ill Appearing, Well Developed, Well Groomed, Well Hydrated Eye Exam: bilateral normal Ears, Nose, Throat: hearing grossly normal Neck: non-tender, full range of motion Respiratory: lungs clear Cardiovascular/Chest: normal peripheral pulses, regular rate, rhythm Peripheral Pulses: radial,right: 2+, radial,left: 2+ Gastrointestinal/Abdominal: normal bowel sounds, non tender, soft, no organomegaly Rectal Exam: deferred Back Exam: normal inspection Extremity: swelling, other - 3+ EDEMA BILATERALLY 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 THERE ARE NO PREVIOUS TRACINGS TO COMPARE. 10/05/18 18:45 CBC (AUTOMATED) W/AUTO DIFF Stat DIFFERENTIAL,MANUAL BY FLAGS Stat 10/05/18 19:06 BLOOD CULTURE Stat 10/05/18 19:16 LACTIC ACID Stat Laboratory Results WBC 1.1 K/mm3 (4.8-10.8) L* 10/05/18 18:45 RBC 3.97 M/mm3 (4.20-5.40) L 10/05/18 18:45 Hgb 13.2 gm/dL (12.0-16.0) 10/05/18 18:45 Hct 39.4 % (36.0-47.0) 10/05/18 18:45 MCV 99.4 fl (81.0-99.0) H 10/05/18 18:45 MCH 33.3 pg (27.0-31.0) H 10/05/18 18:45 MCHC 33.5 g/dL (33.0-37.0) 10/05/18 18:45 RDW 13.7 % (11.5-14.5) 10/05/18 18:45 Plt Count 77 K/mm3 (130-400) L 10/05/18 18:45 MPV 8.6 fl (7.40-10.4) 10/05/18 18:45 Absolute Neuts (auto) 1.00 K/uL (1.8-6.8) L 10/05/18 18:45 Absolute Lymphs (auto) 0.00 K/uL (1.0-3.4) L 10/05/18 18:45 Absolute Monos (auto) 0.00 K/uL (0.2-0.8) L 10/05/18 18:45 Absolute Eos (auto) 0.00 K/uL (0.0-0.4) 10/05/18 18:45 Absolute Basos (auto) 0.00 K/uL (0.0-0.1) 10/05/18 18:45 Neutrophils % 94.2 % (42.0-78.0) H 10/05/18 18:45 Lymphocytes % 3.3 % (20.0-50.0) L 10/05/18 18:45 Monocytes % 2.1 % (2.0-9.0) 10/05/18 18:45 Eosinophils % 0.3 % (1.0-5.0) L 10/05/18 18:45 Basophils % 0.1 % (0.0-2.0) 10/05/18 18:45 Sodium 128 mmol/L (135-145) L 10/05/18 18:28 Potassium 3.9 mmol/L (3.6-5.0) 10/05/18 18:28 Chloride 94 mmol/L (101-111) L 10/05/18 18:28 Carbon Dioxide 24 mmol/L (21-31) 10/05/18 18:28 Anion Gap 13.9 (12-18) 10/05/18 18:28 BUN 28 mg/dL (7-18) H 10/05/18 18:28 Creatinine 0.89 mg/dL (0.6-1.3) 10/05/18 18:28 BUN/Creatinine Ratio 31.5 (10-20) H 10/05/18 18:28 Random Glucose 78 mg/dL (70-105) 10/05/18 18:28 Serum Osmolality 261.4 mOsm/L (275-295) L 10/05/18 18:28 Calcium 7.5 mg/dL (8.4-10.2) L 10/05/18 18:28 Total Bilirubin 0.5 mg/dL (0.2-1.0) 10/05/18 18:28 AST 34 IU/L (10-42) 10/05/18 18:28 ALT 23 IU/L (10-60) 10/05/18 18:28 Alkaline Phosphatase 67 IU/L (42-121) 10/05/18 18:28 Troponin I < 0.02 ng/mL (0.01-0.05) 10/05/18 18:28 B-Natriuretic Peptide 76.4 pg/ml (0-100) 10/05/18 18:28 Serum Total Protein 5.5 gm/dL (6.4-8.2) L 10/05/18 18:28 Albumin 2.6 g/dl (3.2-5.5) L 10/05/18 18:28 Globulin 2.9 gm/dL (2.3-3.5) 10/05/18 18:28 Albumin/Globulin Ratio 0.9 (1.1-1.9) L 10/05/18 18:28 Departure - Departure Clinical Impression: Sepsis associated hypotension Pneumonia Qualifiers: Pneumonia type: due to unspecified organism Laterality: bilateral Lung location: lower lobe of lung Qualified Code(s): J18.1 - Lobar pneumonia, unspecified organism Lung cancer Qualifiers: Laterality: right Lung location: unspecified part of lung Qualified Code(s): C34.91 - Malignant neoplasm of unspecified part of right bronchus or lung Time of Disposition: 20:26 Disposition: Discharge to Home or Self Care Condition: Poor Referrals: Abraham Ortiz III, MD [Primary Care Provider] - 1-2 Weeks Home Medications: Ambulatory Orders Desvenlafaxine Succinate [Pristiq] 50 mg PO DAILY 05/27/12 Esomeprazole [Nexium] 40 mg PO DAILY 05/27/12 Estradiol Patch 0.1MG [Climara] 0.1 mg TD DAILY 05/27/12 HYDROcodone 5MG/APAP 325MG [[place] 5/325] 0 ea PO .Q4H 05/27/12 Iron [Mykidz Iron 10] 15 mg PO DAILY 05/27/12 Levothyroxine Sodium [Synthroid] 0.075 mg PO DAILY 05/27/12 Simvastatin 20 mg PO DAILY 05/27/12 Ondansetron [Zofran Odt] 4 mg PO Q4H PRN #10 tab 11/21/17 Promethazine HCl 25 mg PO Q6H PRN #10 tab 11/21/17 Amoxicillin & Pot Clavulanate [Augmentin Tab] 875 mg PO BID #14 tab 03/04/18 Prochlorperazine Tab [Compazine Tab] 10 mg PO Q8HR PRN #20 tab 03/04/18 Valacyclovir HCl [Valtrex] 500 mg PO BID #10 tab 03/04/18 Transfer to Outside Facility - Transfer Information Accepting Provider:: DR. LESTER Accepting Facility: [facility] Reason for Transfer: required specialist not available
--- NOTE | 2018-10-05 19:03 | RAD ---
EXAM: AP CHEST RADIOGRAPH CLINICAL INDICATION: Acute chest pain. COMPARISON: No comparison chest radiographs are available. FINDINGS: Cardiac size is normal. Diffuse right pulmonary consolidation and left basilar consolidation. No pleural effusions. No pneumothorax, pneumomediastinum or free peritoneal gas. No hilar or mediastinal lymphadenopathy. No mediastinal widening. Bones are intact on this single view. IMPRESSION: Bilateral pulmonary consolidations which could represent pneumonia. No pneumothorax or pleural effusions. Electronically signed by: John Meneses MD 10/05/2018 7:00 PM CDT
[2018-10-05] MEDS: HYDROmorphone HCL INJ 2 MG/ML VIAL IV ONE (19:19)
[2018-10-05] MEDS ORDERED: CEFEPIME 2 GM VIAL ONE (19:30)
[2018-10-05] MEDS ORDERED: SODIUM CHL 0.9% 50ML MIN-BAG+ 50 ML IVPB ONE (19:30)
[2018-10-05] MEDS: CEFEPIME 2 GM in SODIUM CHL 0.9% 50ML MIN-BAG+ 50 ML IVPB ONE (19:33)
[2018-10-05] MEDS ORDERED: SODIUM CHLORIDE 0.9% 1000ML 1,000 ML ONE (20:41)
[2018-10-05] MEDS: SODIUM CHLORIDE 0.9% 1000ML 1,000 ML IVS ONE (20:48)
[2018-10-05 20:53] VITALS: TEMP 97.8
[2018-10-05 21:43] VITALS: BP 118/53
[2018-10-05 21:48] VITALS: O2SAT 92
== END 2018-10-05 21:50 | disposition home or self-care (01) ==
LOC: ER 18:14
DX: J18.1 Lobar pneumonia, unspecified organism (principal); A41.9 Sepsis, unspecified organism; I95.89 Other hypotension; C34.91 Malignant neoplasm of unspecified part of right bronchus or lung; C79.31 Secondary malignant neoplasm of brain; C78.7 Secondary malignant neoplasm of liver and intrahepatic bile duct; E07.9 Disorder of thyroid, unspecified; K21.9 Gastro-esophageal reflux disease without esophagitis; Z87.891 Personal history of nicotine dependence; Z86.73 Personal history of transient ischemic attack (TIA), and cerebral infarction without residual deficits; Z79.899 Other long term (current) drug therapy; Z92.3 Personal history of irradiation
CPT/HCPCS: 71045; 80053; 83605; 83880; 84484; 85025; 87040; 93005; J0692; J1170; J7030; J7050